=== PATIENT | male | born 1945 | race Caucasian/White ===

== ENCOUNTER 2017-01-10 11:50 | Observation (INO) ==
[2017-01-10] MEDS ORDERED: 0.9 % Sodium Chloride 1,000 ML IVC ONE (12:57)
--- NOTE | 2017-01-10 12:57 | Emergency Department Note ---
Disposition Clinical Impression: Gastroenteritis, Colitis, Dehydration Disposition: Admitted As Inpatient Condition: Fair Time of Disposition: 16:41 (Le[facility] OBSSonya) General Adult HPI - General Chief complaint: ED Nausea/Vomiting/Diarrhea Stated complaint: low O2 sats/fluctuating pulse Time Seen by Provider: 01/10/17 12:00 Source: patient, EMS Mode of arrival: ambulatory Limitations: no limitations Nursing Notes Reviewed: Yes Vital Signs Reviewed: Yes - History of Present Illness HPI Narrative: pt complains of vomiting and diarrhea that has been going on since Friday and has weakness today following up with FP nearly passed out due to shortness of breath and lightheadedness urine dark in color no hx of hepatitis and continues to get worse at this time here for evaluation 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 Denies: confusion, chest pain, cough, diaphoresis, headaches, seizure, shortness of breath, syncope Treatments Prior to Arrival: other (other healthcare provider) - Related Data Home Medications Medication Instructions Recorded Confirmed Lisinopril [Zestril] 10 mg PO DAILY 01/10/17 01/10/17 Allergies Allergy/AdvReac Type Severity Reaction Status Date / Time No Known Allergies Allergy Verified 05/07/16 13:18 All systems ED: reviewed and negative except as stated. Constitutional: Reports: fever, weakness. Denies: chills Eyes: Denies: eye pain ENT ED: Denies: ear pain Cardiovascular: Denies: chest pain, palpitations Respiratory: Reports: dyspnea. Denies: cough, wheezes Gastrointestinal: Reports: abdominal pain, nausea, vomiting Genitourinary: Denies: urgency, dysuria, frequency Musculoskeletal: Denies: back pain Integumentary: Denies: rash, abrasion Neurological: Denies: headache Psychiatric: Denies: anxiety Endocrine: Denies: fatigue Hematological/Lymphatic: Denies: easy bleeding Allergic/Immunologic: Denies: facial swelling Past Medical History - Past Medical History Attestation: Yes The following information was validated with the patient. Source: patient, old records reviewed, nursing notes reviewed Medical history: Reports: hypertension Surgical history: Reports: non-contributory Psychiatric history: Reports: no psych history - Social History Smoking Status: Never smoker Smokeless Tobacco Status: No Alcohol use: Reports: rarely Drug use: Reports: none Physical Exam - General Limitations: no limitations General appearance: alert, in no apparent distress, anxious, other (ill appearing) - Head Head exam: atraumatic, normocephalic, normal inspection - Eye Eye exam: Present: normal appearance, PERRL, EOMI - ENT ENT exam: normal exam, normal oropharynx, mucous membranes dry, TM's normal bilaterally, normal external ear exam - Neck Neck exam: Present: normal inspection, full ROM, trachea midline - Chest Chest inspection: Present: normal inspection, symmetric chest wall rise - Respiratory Respiratory exam: Present: normal lung sounds bilaterally - Cardiovascular Cardiovascular exam: Present: tachycardia, normal heart sounds - Abdominal Exam Abdominal exam: Present: soft, Non-Tender, normal bowel sounds. Absent: mass, pulsatile mass - Extremities Exam Extremities exam: Present: normal inspection, full ROM, normal capillary refill. Absent: tenderness, joint swelling - Expanded Lower Extremity Exam Neurovascular/Tendon exam: Present: normal capillary refill, normal fine/light touch Gait: observed and normal - Back Exam Back exam: Present: normal inspection, full ROM. Absent: muscle spasm - Neurological Exam Neurological exam: Present: alert, oriented X3, CN II-XII intact, normal gait - Psychiatric Psychiatric exam: Present: normal affect, normal mood - Skin Skin exam: Present: warm, dry, intact, normal color Course Course Narrative: Patient seen in after being seen at the family physician where he became short of breath and lightheaded and dizzy patient is slightly tachycardic at this time he appears to be somewhat dehydrated on examination patient was given fluid boluses patient was then admitted after testing was performed with the initial testing a chest x-ray elevated however noted he had a PE study done at which point there appeared to be in and about in the right upper quadrant consistent with either colitis or cholecystitis CT the abdomen was then performed showing a colitis with some trace fluid in the pelvis as result he was admitted for IV hydration transferred to [facility] services Dr. Diana in stable condition IV antibiotics started in the ER Vital Signs Temperature 100.5 F H 01/10/17 11:54 Pulse Rate 134 01/10/17 11:54 Respiratory Rate 18 01/10/17 11:54 Blood Pressure 154/92 01/10/17 11:54 O2 Sat by Pulse Oximetry 96 01/10/17 11:54 Temperature 100.5 F H 01/10/17 11:55 Pulse Rate 112 01/10/17 16:00 Respiratory Rate 18 01/10/17 16:00 Blood Pressure 169/92 01/10/17 16:00 O2 Sat by Pulse Oximetry 96 01/10/17 16:00 Oxygen Delivery Oxygen Delivery Room Air Medical Decision Making - MDM Narrative Medical decision making narrative: Pneumonia bronchitis P colitis diverticulitis, cholecystitis myocardial infarction and bacterial versus viral viral gastroenteritis - Medical Records Medical records reviewed: Yes I reviewed the patient's medical records. - Lab Data Lab results reviewed: Yes I reviewed the patient's lab results. Result diagrams: 01/10/17 13:10 01/10/17 13:10 Lab Results 01/10/17 01/10/17 01/10/17 Range/Units 13:05 13:10 13:10 WBC 6.3 (4.3-11.1) K/mcL RBC 5.08 (4.19-5.50) M/mcL Hgb 14.9 (12.9-16.9) g/dL Hct 43.4 (37.5-50.1) % MCV 85.4 (83.0-100.0) fL MCH 29.3 (28.0-33.3) pg MCHC 34.3 (31.6-35.5) g/dL RDW 13.0 (11.5-14.5) % Plt Count 143 (140-400) K/mcL MPV 10.3 (9.4-12.4) fL Seg Neutrophils % 54.0 % Band Neutrophils % 28.0 H (0-4) % Lymphocytes % 12.0 % Monocytes % 4.0 % Basophils % 2.0 % Neutrophils # 5.2 (1.6-8.9) K/mcL Lymphocytes # 0.8 (0.6-4.6) K/mcL Monocytes # 0.3 (0.0-1.3) K/mcL Basophils # 0.1 (0.0-0.2) K/mcL Toxic Granulation Present A (Not Present) Platelet Estimate Normal (Normal) PT 13.8 H (9.4-12.1) Seconds INR 1.3 APTT 29.0 (26.0-36.0) Seconds D-Dimer (0-500) ng/mLFEU Sodium (136-145) mEq/L Potassium (3.5-4.5) mEq/L Chloride (98-109) mEq/L Carbon Dioxide (19-29) mEq/L BUN (8-26) mg/dL Creatinine (0.72-1.25) mg/dL Est GFR ( Amer) (> 60) Est GFR (Non-Af Amer) (> 60) BUN/Creatinine Ratio (6-26) Glucose (70-99) mg/dL Calculated Osmolality (280-300) Calcium (8.6-10.8) mg/dL Total Bilirubin 1.3 H (0.2-1.2) mg/dL Direct Bilirubin 0.5 (0.0-0.5) mg/dL Indirect Bilirubin 0.8 (0.0-1.2) mg/dL AST 24 (5-34) Units/L ALT 21 (0-55) Units/L Alkaline Phosphatase 62 (38-126) Units/L Serum Total Protein 6.7 (6.0-8.3) g/dL Albumin 3.1 L (3.5-5.0) g/dL Globulin 3.6 H (2.4-3.5) g/dL Albumin/Globulin Ratio 0.9 L (1.1-2.2) Urine Color (Yellow) Urine Clarity (Clear) Urine pH (5.0-8.0) pH Units Ur Specific [place] (1.010-1.025) Urine Protein (Neg-Trace) mg/dL Urine Glucose (UA) (Normal) mg/dL Urine Ketones (Negative) mg/dL Urine Blood (Negative) Urine Nitrite (Negative) Urine Bilirubin (Negative) Urine Urobilinogen (Normal) mg/dL Ur Leukocyte Esterase (Negative) Urine Microscopic RBC (0-3) per hpf Urine Microscopic WBC (0-3) per hpf Ur Squamous Epith Cells (None-Few) per lpf Urine Bacteria (None-Few) per hpf Granular Casts (None Seen) per lpf Urine Mucus (Few) Ur Culture Indicated? (NO) 01/10/17 01/10/17 01/10/17 Range/Units 13:10 13:20 14:12 WBC (4.3-11.1) K/mcL RBC (4.19-5.50) M/mcL Hgb (12.9-16.9) g/dL Hct (37.5-50.1) % MCV (83.0-100.0) fL MCH (28.0-33.3) pg MCHC (31.6-35.5) g/dL RDW (11.5-14.5) % Plt Count (140-400) K/mcL MPV (9.4-12.4) fL Seg Neutrophils % % Band Neutrophils % (0-4) % Lymphocytes % % Monocytes % % Basophils % % Neutrophils # (1.6-8.9) K/mcL Lymphocytes # (0.6-4.6) K/mcL Monocytes # (0.0-1.3) K/mcL Basophils # (0.0-0.2) K/mcL Toxic Granulation (Not Present) Platelet Estimate (Normal) PT (9.4-12.1) Seconds INR APTT (26.0-36.0) Seconds D-Dimer 3997 H (0-500) ng/mLFEU Sodium 135 L (136-145) mEq/L Potassium 4.1 (3.5-4.5) mEq/L Chloride 102 (98-109) mEq/L Carbon Dioxide 21 (19-29) mEq/L BUN 13 (8-26) mg/dL Creatinine 0.99 (0.72-1.25) mg/dL Est GFR ( Amer) > 60 (> 60) Est GFR (Non-Af Amer) > 60 (> 60) BUN/Creatinine Ratio 13 (6-26) Glucose 137 H (70-99) mg/dL Calculated Osmolality 282 (280-300) Calcium 8.9 (8.6-10.8) mg/dL Total Bilirubin (0.2-1.2) mg/dL Direct Bilirubin (0.0-0.5) mg/dL Indirect Bilirubin (0.0-1.2) mg/dL AST (5-34) Units/L ALT (0-55) Units/L Alkaline Phosphatase (38-126) Units/L Serum Total Protein (6.0-8.3) g/dL Albumin (3.5-5.0) g/dL Globulin (2.4-3.5) g/dL Albumin/Globulin Ratio (1.1-2.2) Urine Color Yellow (Yellow) Urine Clarity Clear (Clear) Urine pH 5.0 (5.0-8.0) pH Units Ur Specific [place] >= 1.030 H (1.010-1.025) Urine Protein 100 H (Neg-Trace) mg/dL Urine Glucose (UA) Normal (Normal) mg/dL Urine Ketones Negative (Negative) mg/dL Urine Blood Small H (Negative) Urine Nitrite Negative (Negative) Urine Bilirubin Negative (Negative) Urine Urobilinogen Normal (Normal) mg/dL Ur Leukocyte Esterase Negative (Negative) Urine Microscopic RBC 3-5 H (0-3) per hpf Urine Microscopic WBC 0-3 (0-3) per hpf Ur Squamous Epith Cells Few (None-Few) per lpf Urine Bacteria Moderate H (None-Few) per hpf Granular Casts Few H (None Seen) per lpf Urine Mucus Many H (Few) Ur Culture Indicated? NO (NO) - Radiology Data Radiology results reviewed: Yes I reviewed the patient's radiology results. ITS Impressions Chest X-Ray 01/10/17 13:36 IMPRESSION: No acute process. D/ / Tyler Chapman MD / Tyler Chapman MD Interpreting Provider: Tyler Chapman MD Chest CTA 01/10/17 14:30 IMPRESSION: 1. No evidence of pulmonary embolism 2. No acute pulmonary abnormality 3. Possible colitis 4. Cholelithiasis D/ / Coy Subramanian MD / Coy Subramanian MD Interpreting Provider: Coy Subramanian MD Abdomen/Pelvis CT 01/10/17 15:16 IMPRESSION: Acute colitis with trace pelvic free fluid. Additional findings including hepatic steatosis, diverticulosis coli, cholelithiasis, prostatomegaly, and left adrenal mass. D/ / Teofilo Rea MD / Teofilo Rea MD Interpreting Provider: Teofilo Rea MD - EKG Data EKG #1 EKG attestation: Yes I reviewed and interpreted this EKG. EKG results narrative: Sinus tach rate 128 ID 128 QRS 90 Q-T to 85 axis XIV Critical Care Time Critical Care Time: No
[2017-01-10 13:19] LABS: Hematocrit 43.4 % (37.5-50.1); Hemoglobin 14.9 g/dL (12.9-16.9); Mean Corpuscular HGB Conc 34.3 g/dL (31.6-35.5); Mean Corpuscular Hemoglobin 29.3 pg (28.0-33.3); Mean Corpuscular Volume 85.4 fL (83.0-100.0); Mean Platelet Volume 10.3 fL (9.4-12.4); Platelet Count 143 K/mcL (140-400); Red Blood Count 5.08 M/mcL (4.19-5.50)
[2017-01-10 13:26] LABS: INR 1.3; Prothrombin Time 13.8 Seconds (9.4-12.1)
[2017-01-10 13:37] LABS: BUN/Creatinine Ratio 13 (6-26); Blood Urea Nitrogen 13 mg/dL (8-26); Calcium 8.9 mg/dL (8.6-10.8); Carbon Dioxide 21 mEq/L (19-29); Chloride 102 mEq/L (98-109); Glucose 137 mg/dL (70-99); Osmolality,Calculated 282 (280-300); Potassium 4.1 mEq/L (3.5-4.5); Sodium 135 mEq/L (136-145); eGFR For African Americans > 60 (> 60); eGFR For Non-African Americans > 60 (> 60)
[2017-01-10 13:54] LABS: Basophils # 0.1 K/mcL (0.0-0.2); Lymphocytes # 0.8 K/mcL (0.6-4.6); Monocytes # 0.3 K/mcL (0.0-1.3); Neutrophils # 5.2 K/mcL (1.6-8.9)
[2017-01-10 13:55] LABS: Platelet Estimate Normal (Normal); Toxic Granulation Present (Not Present)
[2017-01-10 14:17] LABS: Bilirubin,Urine Negative (Negative); Blood,Urine Small (Negative); Clarity,Urine Clear (Clear); Color,Urine Yellow (Yellow); Glucose,Urine (UA) Normal (Normal); Ketones,Urine Negative (Negative); Leukocyte Esterase,Urine Negative (Negative); Nitrite,Urine Negative (Negative); Protein,Urine 100 mg/dL (Neg-Trace); Specific Gravity,Urine >= 1.030 (1.010-1.025); Urobilinogen,Urine Normal (Normal)
[2017-01-10] MEDS ORDERED: 0.9 % Sodium Chloride 1,000 ML IVC SCH (14:30)
[2017-01-10 14:32] LABS: Bacteria,Urine Moderate per hpf (None-Few); Granular Casts,Urine Few per lpf (None Seen); Mucus,Urine Many (Few); Squamous Epithelial Cell,Urine Few per lpf (None-Few); WBC,Urine 0-3 per hpf (0-3)
[2017-01-10 14:47] LABS: Albumin 3.1 g/dL (3.5-5.0); Albumin/Globulin Ratio 0.9 (1.1-2.2); Bilirubin,Direct 0.5 mg/dL (0.0-0.5); Bilirubin,Indirect 0.8 mg/dL (0.0-1.2); Bilirubin,Total 1.3 mg/dL (0.2-1.2); Globulin 3.6 g/dL (2.4-3.5); Total Protein 6.7 g/dL (6.0-8.3)
[2017-01-10] MEDS ORDERED: MetroNIDAZOLE 500 MG/100 ML 500 MG/100 ML BAG IVPB ONE ×2 (16:06→17:07)
[2017-01-10] MEDS ORDERED: Ibuprofen 400 MG TABLET PO PRN (17:07)
[2017-01-10] MEDS ORDERED: Naloxone 0.4 MG/ML INJ IVP PRN (17:07)
[2017-01-10] MEDS ORDERED: Acetaminophen 325 MG TABLET PO PRN (17:07)
[2017-01-10] MEDS ORDERED: Ondansetron 4 MG/2 ML VIAL IVP PRN (17:07)
[2017-01-10] MEDS: 0.9 % Sodium Chloride 1,000 ML IVC SCH ×4 (17:59→20:27)
[2017-01-10] MEDS: Famotidine 20 MG/2 ML VIAL IVP SCH (18:05)
[2017-01-11] MEDS: 0.9 % Sodium Chloride 1,000 ML IVC SCH ×3 (04:45→10:48)
[2017-01-11] MEDS: Famotidine 20 MG/2 ML VIAL IVP SCH ×2 (05:26→17:48)
[2017-01-11 07:53] LABS: Basophils % 0.2 %; Eosinophils % 0.2 %; Hematocrit 37.5 % (37.5-50.1); Immature Granulocytes % 0.7 % (0-4); Lymphocytes # 0.7 K/mcL (0.6-4.6); Lymphocytes % 15.7 %; Mean Corpuscular HGB Conc 34.7 g/dL (31.6-35.5); Mean Corpuscular Hemoglobin 29.3 pg (28.0-33.3); Mean Corpuscular Volume 84.5 fL (83.0-100.0); Mean Platelet Volume 10.4 fL (9.4-12.4); Monocytes # 0.5 K/mcL (0.0-1.3); Monocytes % 12.3 %; Neutrophils # 3.1 K/mcL (1.6-8.9); Platelet Count 143 K/mcL (140-400); Red Blood Count 4.44 M/mcL (4.19-5.50); Red Cell Distribution Width 13.1 % (11.5-14.5); Segmented Neutrophils % 70.9 %
[2017-01-11 09:37] LABS: Platelet Estimate Normal (Normal)
[2017-01-11 09:38] LABS: BUN/Creatinine Ratio 13 (6-26); Blood Urea Nitrogen 11 mg/dL (8-26); Calcium 8.2 mg/dL (8.6-10.8); Carbon Dioxide 18 mEq/L (19-29); Chloride 108 mEq/L (98-109); Glucose 137 mg/dL (70-99); Osmolality,Calculated 284 (280-300); Potassium 3.5 mEq/L (3.5-4.5); Sodium 136 mEq/L (136-145); eGFR For African Americans > 60 (> 60); eGFR For Non-African Americans > 60 (> 60)
--- NOTE | 2017-01-11 13:13 | Electrocardiograph Report ---
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
--- NOTE | 2017-01-11 16:08 | Internal Med History&Physical ---
Date of Encounter: 01/11/17 Time of Encounter: 15:35 Assessment and Plan (1) Colitis Current visit: Yes Status: Acute He has been started on Flagyl and Cipro IV. I will advance diet as tolerated. (2) Hypertension Current visit: Yes Status: Chronic Continue lisinopril. Qualifiers: Hypertension type: essential hypertension Qualified Code(s): I10 - Essential (primary) hypertension (3) Left adrenal mass Current visit: Yes Status: Acute A 3.6 cm diameter nonspecific mass within the left adrenal gland was seen on CT of the abdomen and pelvis. I will let his PCP further evaluate as necessary. Internal Medicine - H&P: HPI Chief complaint: Nausea and diarrhea Admitted From: Home Plans for Post Hospital Care: Home History of present illness: Mr. Subramanian is a 71 year old male who came to emergency room stating he had onset of chills, dry heaving, and diarrhea the afternoon of January 08. When it did not improve he came to emergency room the afternoon of January 10. He was evaluated with CT scan showing evidence of colitis. He was admitted to [facility] floor for ongoing care needs. Denies previous similar episodes. He denies any travel or unusual ingestion of food or fluids. He denies disorders of his liver gallbladder or exocrine pancreas. He has not used any new medications. He has not been contact with people with similar symptoms. He states his stools are becoming more firm and he has had no dry heaving for several hours. He denies abdominal pain. Past Med Surg Social Fam HX - Past Medical History Medical history: hypertension Psychiatric history: no psych history - Past Surgical History Surgical History: non-contributory - Social History Smoking Status: Never smoker Smokeless Tobacco Status: No Alcohol use: rarely Drug use: none Internal Medicine - H&P: Meds Lisinopril [Zestril] 10 mg PO DAILY 01/10/17 [History] Allergies No Known Allergies Allergy (Verified 05/07/16 13:18) All Systems PM: A 10-system review of systems was performed and is negative for pertinent findings except as documented above in the HPI. Review of systems: Gen.: He states his weight has been stable past few months Cardiovascular: He denies AR hypertension heart failure angina DVT or pulmonary embolus Respiratory: He is a lifelong nonsmoker and has no known chronic lung disease GI: Denies disorders of his liver gallbladder or exocrine pancreas : He has had kidney stones in the distant past. He denies other kidney bladder prostate disorders Neurologic: He denies large distribution strokes or seizures. Endocrine: He denies diabetes thyroid disease or hyperlipidemia Hematology/oncology: He denies blood disorders cancers or anemia Psychiatric: The states he experienced depression several years ago but it resolved and he does not take medication. He denies other mental health diagnoses Musk skeletal: He has minimal DJD. He denies gout or other bone joint or muscle disorders. He had right hand surgery to repair an injury and had right total knee replacement remotely. - Constitutional Vitals: Temp Pulse Resp BP Pulse Ox 98.6 F 87 16 126/73 99 01/11/17 14:00 01/11/17 14:00 01/11/17 14:00 01/11/17 14:00 01/11/17 14:00 Exam: Gen.: He is a well-developed well-nourished male sitting in a chair who appears in no acute distress HEENT: Head is traumatic and normocephalic. Eyes: EOMI. There is no scleral icterus. Mouth: Mucosa is moist. Neck: Supple and nontender. There is no thyromegaly or adenopathy noted. Heart: Regular without murmurs gallops or ectopics Lungs: No wheezes or crackles are heard. Abdomen: Bowel sounds are diminished. There is no tenderness to palpation. No masses or guarding are noted. Extremities: There is no cyanosis edema or clubbing noted. Dorsalis pedis and posterior tibial pulses are trace to 1+ bilaterally. He has hair on his toes bilaterally. Neurologic: Mental status: He is talkative and a good historian. Cranial nerves : Smile is symmetric. Forehead wrinkles bilaterally. Tongue protrudes midline. EOMI. Motor: There is no pronator drift. Cerebellar: Finger to nose is intact bilaterally. Skin: Warm and dry Internal Med - H&P Results - Labs CBC & Chem 7: 01/11/17 07:25 01/11/17 07:25 Labs: Short CBC 01/11/17 Range/Units 07:25 WBC 4.3 (4.3-11.1) K/mcL Hgb 13.0 D (12.9-16.9) g/dL Hct 37.5 (37.5-50.1) % Plt Count 143 (140-400) K/mcL Neutrophils # 3.1 (1.6-8.9) K/mcL BMP 01/11/17 07:25 Sodium 136 Potassium 3.5 Chloride 108 Carbon Dioxide 18 L BUN 11 Creatinine 0.83 Glucose 137 H Calcium 8.2 L
[2017-01-11] MEDS: 0.45 % Sodium Chloride w/KCl 20 MEQ/1,000 ML MLS IVC SCH (16:35)
[2017-01-11] MEDS: MetroNIDAZOLE 500 MG/100 ML 500 MG/100 ML BAG IVPB SCH ×2 (16:38→23:31)
[2017-01-12] MEDS: 0.45 % Sodium Chloride w/KCl 20 MEQ/1,000 ML MLS IVC SCH (00:45)
[2017-01-12] MEDS: Famotidine 20 MG/2 ML VIAL IVP SCH (05:26)
[2017-01-12 05:54] LABS: Hematocrit 34.5 % (37.5-50.1); Hemoglobin 11.8 g/dL (12.9-16.9); Lymphocytes # 1.1 K/mcL (0.6-4.6); Mean Corpuscular HGB Conc 34.2 g/dL (31.6-35.5); Mean Corpuscular Hemoglobin 29.1 pg (28.0-33.3); Mean Corpuscular Volume 85.2 fL (83.0-100.0); Mean Platelet Volume 10.6 fL (9.4-12.4); Platelet Count 148 K/mcL (140-400); Red Blood Count 4.05 M/mcL (4.19-5.50); Red Cell Distribution Width 13.2 % (11.5-14.5)
[2017-01-12 06:15] LABS: Alanine Aminotransferase 20 Units/L (0-55); Albumin 2.5 g/dL (3.5-5.0); Albumin/Globulin Ratio 0.9 (1.1-2.2); Alkaline Phosphatase 53 Units/L (38-126); Aspartate Amino Transferase 25 Units/L (5-34); BUN/Creatinine Ratio 13 (6-26); Bilirubin,Total 0.8 mg/dL (0.2-1.2); Blood Urea Nitrogen 11 mg/dL (8-26); Calcium 8.1 mg/dL (8.6-10.8); Carbon Dioxide 22 mEq/L (19-29); Chloride 108 mEq/L (98-109); Globulin 2.8 g/dL (2.4-3.5); Glucose 109 mg/dL (70-99); Osmolality,Calculated 288 (280-300); Potassium 3.6 mEq/L (3.5-4.5); Sodium 139 mEq/L (136-145); Total Protein 5.3 g/dL (6.0-8.3); eGFR For African Americans > 60 (> 60); eGFR For Non-African Americans > 60 (> 60)
[2017-01-12 07:09] LABS: Monocytes # 0.5 K/mcL (0.0-1.3); Neutrophils # 2.3 K/mcL (1.6-8.9)
[2017-01-12 07:10] LABS: Platelet Estimate Normal (Normal)
[2017-01-12 07:17] VITALS: BP 121/79
[2017-01-12] MEDS: MetroNIDAZOLE 500 MG/100 ML 500 MG/100 ML BAG IVPB SCH (07:22)
--- NOTE | 2017-01-12 09:17 | Discharge Summary ---
Date of Encounter: 01/12/17 Time of Encounter: 09:05 - Discharge Diagnosis (1) Colitis Priority: Primary Status: Acute (2) Hypertension Priority: Secondary Status: Chronic Qualifiers: Hypertension type: essential hypertension Qualified Code(s): I10 - Essential (primary) hypertension (3) Left adrenal mass Priority: Secondary Status: Acute - Discharge Medications Prescriptions: Ciprofloxacin HCl [Cipro] 500 mg PO BID #6 tablet Lactobacillus [Culturelle] 1 each PO BID #6 cap.sprink metroNIDAZOLE [Flagyl] 500 mg PO TID #9 tablet Home Medications: Lisinopril [Zestril] 10 mg PO DAILY 01/10/17 [History] Ciprofloxacin HCl [Cipro] 500 mg PO BID #6 tablet 01/12/17 [Rx] Lactobacillus [Culturelle] 1 each PO BID #6 cap.sprink 01/12/17 [Rx] metroNIDAZOLE [Flagyl] 500 mg PO TID #9 tablet 01/12/17 [Rx] Allergies/Adverse Reactions: Allergies No Known Allergies Allergy (Verified 05/07/16 13:18) Date of admission: 01/10/17 16:55 Primary care physician: Olga Espitia CNP - Patient Status Disposition: Home, Self-Care Condition: Fair Functional capacity at discharge: independent ambulation Overall status at discharge: patient is progressing back to baseline - Discharge Instructions Follow Up With: Olga Espitia CNP [Primary Care Provider] - - Diet and Activity Activity: resume usual activities as tolerated Diet: advance to your usual diet Hospital course: Mr. Subramanian is a 71 year old male who came to emergency room stating he had onset of chills, dry heaving, and diarrhea the afternoon of January 08. When it did not improve he came to emergency room the afternoon of January 10. He was evaluated with CT scan showing evidence of colitis. He was admitted to [facility] floor for ongoing care needs. Initial orders were written by the emergency room physician. I saw him on January 11 and performed a history and physical. He was started on IV Flagyl and Cipro. His vomiting resolved and diarrhea significantly improved. He remained afebrile the last 24 hours of hospitalization. Diet was advanced and tolerated well. There were no other new problems and on January 12 he felt stable for discharge home. He will continue with antibiotic and probiotic for 3 additional days after discharge. I told him there was a left adrenal gland nodule/mass seen. I will let his PCP Olga Espitia CNP further evaluate this. He will follow with her within the next week. - Time Spent with Patient Total time spent providing and/or coordinating discharge services: - Constitutional Vitals: Temp Pulse Resp BP Pulse Ox 98.7 F 78 16 121/79 97 01/12/17 07:14 01/12/17 07:14 01/12/17 07:14 01/12/17 07:14 01/12/17 07:14
== END 2017-01-12 09:52 | disposition home or self-care (01) ==
LOC: EMEROOPIK 11:50 → INPPIK 11:50
PROVIDERS: ADMIT Internal Medicine; ATTEND Internal Medicine